=== PATIENT | male | born 1980 ===

== ENCOUNTER 2017-05-11 02:23 | Emergency (ER) | payer SELFPAY ==
[2017-05-11 02:57] VITALS: BMI 29.4
--- NOTE | 2017-05-11 03:21 | ED PDOC ---
HPI: Psych/Substance Abuse Time Seen by Provider: 05/11/17 02:52 Chief Complaint (Provider): ETOH intoxication ED Caveat: Intoxicated History Per: Patient History/Exam Limitations: intoxication Onset/Duration Of Symptoms: Days (x1) Modifying Factor(s): Alcohol Additional Complaint(s): Darnell is a 37 year old male who was brought in to the ED after being found publicly intoxicated. Patient admits to drinking alcohol today. He has no medical complaints at this time. PMD: None provided Past Medical History Reviewed: Historical Data, Nursing Documentation, Vital Signs - Medical History PMH: No Chronic Diseases - Surgical History Surgical History: No Surg Hx - Family History Family History: States: Unknown Family Hx - Social History Current smoker - smoking cessation education provided: No Alcohol: Social Drugs: Denies - Allergies Allergies/Adverse Reactions: Allergies Allergy/AdvReac Type Severity Reaction Status Date / Time No Known Allergies Allergy Verified 05/11/17 02:57 Review of Systems Review Of Systems: ROS cannot be obtained secondary to pt's inabilty to answer questions. Physical Exam - Reviewed Nursing Documentation Reviewed: Yes Vital Signs Reviewed: Yes - Physical Exam Appears: Positive for: Non-toxic, No Acute Distress Head Exam: Positive for: ATRAUMATIC, NORMOCEPHALIC Skin: Positive for: Normal Color, Warm, Dry Eye Exam: Positive for: EOMI, Normal appearance, PERRL Neck: Positive for: Normal, Painless ROM, Supple Cardiovascular/Chest: Positive for: Regular Rate, Rhythm. Negative for: Murmur Respiratory: Positive for: Normal Breath Sounds. Negative for: Respiratory Distress Gastrointestinal/Abdominal: Positive for: Normal Exam, Soft. Negative for: Tenderness Back: Positive for: Normal Inspection. Negative for: L CVA Tenderness, R CVA Tenderness, Vertebral Tenderness Extremity: Positive for: Normal ROM. Negative for: Pedal Edema, Deformity Neurologic/Psych: Positive for: Alert (and awake), Gait (unsteady), Other ( Speech is slurred) Medical Decision Making Medical Decision Making: Time: 3:02 Initial Impression: 37 year old male with alcohol intoxication Initial Plan: --Alcohol serum --Urine drug screen --Accucheck --Pending clinical sobriety Time: 5:05 Patient is alert and oriented x3 and clinically sober, requesting to leave. He is ambulating in the ED with steady gait, and clear speech. Patient is medically stable for discharge. Clinical Impression: Alcohol abuse Scribe Attestation: Documented by Mackenzie Vides, acting as a scribe for Carson Cho MD Provider Scribe Attestation: All medical record entries made by the Scribe were at my direction and personally dictated by me. I have reviewed the chart and agree that the record accurately reflects my personal performance of the history, physical exam, medical decision making, and the department course for this patient. I have also personally directed, reviewed, and agree with the discharge instructions and disposition. Disposition - Clinical Impression Clinical Impression: Alcohol abuse with intoxication - Patient ED Disposition Is Patient to be Admitted: No Counseled Patient/Family Regarding: Diagnosis, Need For Followup - Disposition Disposition: Routine/Home Disposition Time: 05:05 Condition: STABLE Instructions: Alcohol Intoxication (ED) Forms: [employer] (Slovak)
[2017-05-11 03:44] VITALS: RESP 18; TEMP 97.1; O2SAT 97
[2017-05-11 06:09] VITALS: BP 108/63; PULSE 74
== END 2017-05-11 05:25 | disposition home or self-care (01) ==
LOC: H.ER 02:23
DX: F10.129 Alcohol abuse with intoxication, unspecified (principal)
CPT/HCPCS: 82948; 99282; G0480